=== PATIENT | male | born 1985 | race American Indian/Alaskan Native ===

== ENCOUNTER 2018-03-28 10:57 | Emergency (ER) | payer OTHER ==
[2018-03-28 11:02] VITALS: BP 121/74
[2018-03-28] MEDS ORDERED: TORADOL IM ONE (11:19)
--- NOTE | 2018-03-28 11:22 | Emergency Department Report ---
Chief Complaint: Extremity Injury, Lower Stated Complaint: RIGHT ANKLE/FOOT PAIN Time Seen by Provider: 03/28/18 11:19 - HPI History of Present Illness: 32-year-old male presents with a 1 month history of progressively worsening pain to the right outer foot and the right ankle. He has been wearing a ankle brace to help with his discomfort and his support. He otherwise has not taken much for his discomfort prior to presentation. No particular injury or time or he feels he may have twisted the foot or ankle. He says that sometimes he will step on his foot and feel a sharp pain go up into the ankle and leg. He feels like it is slightly swollen but he denies any skin color change. No past medical history. - ROS Review of Systems: Positive for arthralgia and swelling Negative for skin color change or obvious deformity - Exam Vital Signs: Vital Signs 03/28/18 11:00 Temperature 98.4 F Pulse Rate 86 Respiratory 18 Rate Blood Pressure 121/74 O2 Sat by Pulse 98 Oximetry Physical Exam: Heart and lungs sounds normal to auscultation. No obvious deformity of the affected right ankle or foot. Pedal pulses intact. MSE screening note: Focused history and physical exam performed. Due to findings the following was ordered: He will have an x-ray of the right foot and ankle. He will be given a IM shot of Toradol. ED Disposition for MSE Condition: Stable Referrals: PRIMARY CARE, [Primary Care Provider] - 3-5 Days
--- NOTE | 2018-03-28 11:46 | XRay Report ---
RIGHT FOOT, 3 views: History: Right foot pain. The bony architecture is intact. Bony alignment is normal. No soft tissue abnormalities are seen. The joint spaces appear preserved. IMPRESSION: Normal right foot.
--- NOTE | 2018-03-28 11:46 | XRay Report ---
RIGHT ANKLE, 3 views: History: right ankle pain. Bone mineralization is normal. No acute osseous abnormality or joint pathology is identified. The soft tissues are unremarkable. IMPRESSION: Normal study.
--- NOTE | 2018-03-28 12:54 | Emergency Department Report ---
ED Lower Extremity HPI - General Chief Complaint: Extremity Injury, Lower Stated Complaint: RIGHT ANKLE/FOOT PAIN Time Seen by Provider: 03/28/18 11:19 Source: patient Mode of arrival: Ambulatory Limitations: No Limitations - History of Present Illness Initial Comments: This is a 32-year-old -[place] male that presents with right foot and right ankle pain for the past month. Patient reports pain as sharp pain that is radiating up to right ankle. He is currently wearing a brace intermittently to help support ankle. Patient reports right foot is very sensitive to touch. Denies recent injury or history of gout. He is currently not taking anything orally for pain. Reports she requires a lot of standing and not sure if that is the cause of pain. Admits swelling is intermittent but currently not having swelling at this time. Denies numbness tingling, fever, recent injury, redness , and deformity. MD Complaint: foot injury (right foot and ankle pain) -: month(s) (1 month) Injury: Ankle: Right (pain with weight bearing), Foot: Right (pain with weight bearing and touch) Type of Injury: unknown Place: home Severity: moderate Severity scale (0 -10): 7 Improves With: NSAID, immobilization (ankle brace) Worsens With: weight bearing, movement, palpation Associated Symptoms: swelling, able to partially bear weight, ambulatory Treatments Prior to Arrival: other (ankle brace) - Related Data Previous Rx's Medication Instructions Recorded Last Taken Type Ibuprofen 800 mg PO TID PRN #15 tablet 03/28/18 Unknown Rx methOCARBAMOL [Robaxin TAB] 500 mg PO BID PRN #15 tab 03/28/18 Unknown Rx Allergies Allergy/AdvReac Type Severity Reaction Status Date / Time No Known Allergies Allergy Unverified 03/28/18 11:00 ED Review of Systems ROS: Stated complaint: RIGHT ANKLE/FOOT PAIN Other details as noted in HPI Constitutional: denies: chills, fever Respiratory: denies: cough, shortness of breath, wheezing Cardiovascular: denies: chest pain, palpitations Gastrointestinal: denies: abdominal pain, nausea, vomiting, diarrhea Musculoskeletal: arthralgia (right ankle pain and right foot pain). denies: back pain, joint swelling Skin: denies: rash, lesions Neurological: denies: headache, weakness, numbness, paresthesias Psychiatric: denies: anxiety, depression ED Past Medical Hx - Past Medical History Previous Medical History?: No - Surgical History Past Surgical History?: No - Medications Home Medications: Home Medications Medication Instructions Recorded Confirmed Last Taken Type Ibuprofen 800 mg PO TID PRN #15 tablet 03/28/18 Unknown Rx methOCARBAMOL [Robaxin TAB] 500 mg PO BID PRN #15 tab 03/28/18 Unknown Rx ED Physical Exam - General Limitations: No Limitations General appearance: alert, in no apparent distress, obese - Respiratory Respiratory exam: Present: normal lung sounds bilaterally. Absent: respiratory distress, wheezes, rales, rhonchi, stridor, accessory muscle use - Cardiovascular Cardiovascular Exam: Present: regular rate, normal rhythm, normal heart sounds. Absent: systolic murmur, diastolic murmur, rubs, gallop - GI/Abdominal GI/Abdominal exam: Present: soft, normal bowel sounds. Absent: distended, tenderness, guarding, rebound, rigid, organomegaly, mass - Extremities Exam Extremities exam: Present: full ROM, normal capillary refill. Absent: pedal edema, joint swelling, calf tenderness - Expanded Lower Extremity Exam Right Hip exam: Present: normal inspection, full ROM Upper Leg exam: Present: normal inspection, full ROM Knee exam: Present: normal inspection, full ROM Lower Leg exam: Present: normal inspection, full ROM Ankle exam: Present: normal inspection, full ROM Foot/Toe exam: Present: normal inspection, full ROM. Absent: tenderness, swelling, abrasion, laceration, ecchymosis, deformity, crepidus, dislocation, erythema, amputation, puncture wound Neuro vascular tendon exam: Present: no vascular compromise Gait: Positive: observed and normal - Neurological Exam Neurological exam: Present: alert, oriented X3, normal gait - Psychiatric Psychiatric exam: Present: normal affect, normal mood - Skin Skin exam: Present: warm, dry, intact, normal color. Absent: rash ED Course Vital Signs 03/28/18 03/28/18 11:00 11:26 Temperature 98.4 F Pulse Rate 86 Respiratory 18 18 Rate Blood Pressure 121/74 O2 Sat by Pulse 98 Oximetry ED Lower Extremity MDM - Radiology Data Radiology results: report reviewed cc: ARI MORELOS DO Fluoro Time In Minutes: RIGHT FOOT, 3 views: History: Right foot pain. The bony architecture is intact. Bony alignment is normal. No soft tissue abnormalities are seen. The joint spaces appear preserved. IMPRESSION: Normal right foot. RIGHT ANKLE, 3 views: History: right ankle pain. Bone mineralization is normal. No acute osseous abnormality or joint pathology is identified. The soft tissues are unremarkable. IMPRESSION: Normal study. - Medical Decision Making This is a 32 y.o. male presents with right ankle and right foot pain for 1 month. Patient was examined by me and Dr. Morelos. Vitals stable and in no acute distress. Physical findings susceptible of muscle strain of right ankle and right foot. Xray of right ankle and foot obtained and normal scan. Patient informed of results. Plan discussed with patient to discharge home and treat outpatient. He agrees with ER plan. Patient discharged home in stable condition. Start naproxen and Robaxin. Follow up with podiatry. Referred to [facility]. Critical care attestation.: If time is entered above; I have spent that time in minutes in the direct care of this critically ill patient, excluding procedure time. ED Disposition Clinical Impression: Muscle strain of right ankle Qualifiers: Encounter type: initial encounter Qualified Code(s): S96.911A - Strain of unspecified muscle and tendon at ankle and foot level, right foot, initial encounter Muscle strain of right foot Qualifiers: Encounter type: initial encounter Qualified Code(s): S96.911A - Strain of unspecified muscle and tendon at ankle and foot level, right foot, initial encounter Disposition: DC- TO HOME OR SELFCARE Is pt being admited?: No Does the pt Need Aspirin: No Condition: Stable Instructions: Muscle Strain (ED), Ankle Exercises (GEN) Additional Instructions: Rest Use ice or heat on affected area for 20 minutes and off for 2 hours. Take pain medication as needed for pain. Don't drive or operate heavy machinery while taking muscle relaxers because they may cause drowsiness. Continue to wear ankle brace for support. Follow up with podiatry and [facility]. Prescriptions: Ibuprofen 800 mg PO TID PRN #15 tablet PRN Reason: Pain methOCARBAMOL [Robaxin TAB] 500 mg PO BID PRN #15 tab PRN Reason: Muscle Spasm Referrals: [facility] [Outside] - 3-[address] [facility] [Provider Group] - 3-5 Days Forms: Work/School Release Form(ED) Time of Disposition: 13:28 Print Language: YI
== END 2018-03-28 13:46 | disposition home or self-care (01) ==
LOC: ED 10:57
DX: S96.911A Strain of unspecified muscle and tendon at ankle and foot level, right foot, initial encounter (principal); X58.XXXA Exposure to other specified factors, initial encounter; Y93.89 Activity, other specified; Y92.89 Other specified places as the place of occurrence of the external cause; Y99.8 Other external cause status
CPT/HCPCS: 73610; 73630; 96372; 99283; J1885